=== PATIENT | male | born 1980 | race American Indian/Alaskan Native ===

== ENCOUNTER 2016-10-14 09:35 | Emergency (ER) | payer MEDICARE ==
[2016-10-14 10:01] VITALS: BP 136/98
--- NOTE | 2016-10-14 10:28 | Emergency Department Report ---
HPI - General Chief Complaint: Dental/Oral Time Seen by Provider: 10/14/16 10:16 - HPI HPI: The patient is a 36-year-old male who presents to ED complaining of 7/10 pain in the right side of his mouth x 30 days . Patient states that the pain started 5 days ago and has increased in severity over the last 2-3 days. The pain is exacerbated by eating and opening of the mouth. Patient states the pain is alleviated initially with pain medication but comes back. She states she has a dentist appointment on October 23 Patient states that it radiates towards ear. Patient describes a as a throbbing, pressure-like sensation. Patient states otherwise well and has no other complaints. Patient has had no fevers and no chills. No chest pain, no shortness of breath. No abdominal pain. No shortness of breath or recent trauma to the face. ED Past Medical Hx - Past Medical History Previous Medical History?: Yes Hx Psychiatric Treatment: Yes (anxiety) Additional medical history: toothache, Back pain and knee pain - Surgical History Past Surgical History?: Yes Additional Surgical History: Back surgery - Social History Smoking Status: Current Every Day Smoker Substance Use Type: Non Opiate Pain, Prescribed - Medications Home Medications: Home Medications Medication Instructions Recorded Confirmed Last Taken Type Acetaminophen-Codeine #4 TAB PRN 10/14/16 10/13/16 History Amoxicillin 500 mg PO BID #20 capsule 10/14/16 Unknown Rx Gabapentin [Neurontin] 600 mg PO Q8H 10/14/16 10/14/16 10/14/16 History busPIRone [Buspar] 10 mg PO BID 10/14/16 10/14/16 10/13/16 History traMADol [Ultram 50 MG tab] 50 mg PO Q6HR PRN #16 tablet 10/14/16 Unknown Rx ED Review of Systems ROS: Stated complaint: ABCESS/TOOTHACHE Other details as noted in HPI Constitutional: denies: chills, fever Eyes: denies: eye pain, eye discharge, vision change ENT: denies: ear pain, throat pain Respiratory: denies: cough, shortness of breath, wheezing Cardiovascular: denies: chest pain, palpitations Endocrine: no symptoms reported Gastrointestinal: denies: abdominal pain, nausea, vomiting, diarrhea Genitourinary: denies: urgency, dysuria, frequency, hematuria Musculoskeletal: denies: back pain, joint swelling, arthralgia Skin: denies: rash, lesions Neurological: denies: headache, weakness, paresthesias Psychiatric: denies: anxiety, depression Hematological/Lymphatic: denies: easy bleeding, easy bruising Physical Exam - Physical Exam Vital Signs: Vital Signs 10/14/16 09:58 Temperature 97.7 F Pulse Rate 69 Respiratory 20 Rate Blood Pressure 136/98 O2 Sat by Pulse 97 Oximetry Physical Exam: GENERAL: Alert and oriented x3, no apparent distress, Normal Gait, atraumatic. HEAD: Head is normocephalic and a-traumatic. EYES: Extra ocular muscles are intact. Pupils are equal, round, and reactive to light and accommodation. EARS: symetrical, atraumatic. gross auditory nml bilaterally. NOSE: Nose symetrical, Nontender,Nares appeared normal. MOUTH:Mouth is well hydrated and without lesions. Tonsils nonerythematous or swollen, Uvula midline, Tongue not elevated. Mucous membranes are moist. Posterior pharynx clear, no exudate or lesions. Patent airways. Dental caries on Teeth #27-30. Nontender to palpation, nonedematous, no gingival enlargement. No TMJ tenderness NECK: Supple. Non edematous, No carotid bruits. No lymphadenopathy or thyromegaly. No C-spine tenderness LUNGS: Symetrical with respiration, No wheezing, no rales or crackles, CTAB. HEART: S1, S2 present, regular rate and rhythm without murmur, no rubs, no gallops. SKIN: Warm and dry, No lesions, No ulceration or induration present. ED Course Vital Signs 10/14/16 09:58 Temperature 97.7 F Pulse Rate 69 Respiratory 20 Rate Blood Pressure 136/98 O2 Sat by Pulse 97 Oximetry ED Medical Decision Making - Medical Decision Making 36-year-old male presented with dental pain due to dental caries ED course: Discussed the patient and keep appointment for dentist. Discussed some medication of antibiotics and pain medication until dentist appointment. Vital signs are stable patient is in no acute or restricted distress. Patient understands instructions given and to follow-up Critical care attestation.: If time is entered above; I have spent that time in minutes in the direct care of this critically ill patient, excluding procedure time. ED Disposition Clinical Impression: Dental caries, Pain, dental Disposition: DISCHARGED TO HOME OR SELFCARE Is pt being admited?: No Does the pt Need Aspirin: No Condition: Stable Instructions: Dental Caries (ED), Toothache (ED) Prescriptions: Amoxicillin 500 mg PO BID #20 capsule traMADol [Ultram 50 MG tab] 50 mg PO Q6HR PRN #16 tablet PRN Reason: Pain Referrals: PRIMARY CARE, [Primary Care Provider] - 3-5 Days [facility] [Outside] - 3-5 Days [facility] [Outside] - 3-5 Days Forms: Work/School Release Form(ED) Time of Disposition: 10:32
== END 2016-10-14 11:10 | disposition home or self-care (01) ==
LOC: ED 09:35
DX: K02.9 Dental caries, unspecified (principal); F41.9 Anxiety disorder, unspecified; F17.200 Nicotine dependence, unspecified, uncomplicated
CPT/HCPCS: 99282

== ENCOUNTER 2018-04-06 01:39 | Emergency (ER) | payer MEDICARE ==
[2018-04-06 02:52] LABS: Basophils # (Auto) 0.1 K/mm3 (0.0-0.1); Basophils % (Auto) 1.1 % (0.0-1.8); Eosinophils # (Auto) 0.1 K/mm3 (0.0-0.4); Eosinophils % (Auto) 1.8 % (0.0-4.3); Hematocrit 42.1 % (35.5-45.6); Hemoglobin 14.4 gm/dl (11.8-15.2); Lymphocytes # (Auto) 1.9 K/mm3 (1.2-5.4); Lymphocytes % (Auto) 23.1 % (13.4-35.0); Mean Corpuscular HGB Conc 34 % (32-34); Mean Corpuscular Hemoglobin 30 pg (28-32); Mean Corpuscular Volume 88 fl (84-94); Monocytes # (Auto) 0.7 K/mm3 (0.0-0.8); Monocytes % (Auto) 8.6 % (0.0-7.3); Platelet Count 296 K/mm3 (140-440); Red Blood Count 4.77 M/mm3 (3.65-5.03); Red Cell Distribution Width 13.5 % (13.2-15.2)
[2018-04-06 03:00] LABS: Bilirubin,Urine NEG (Negative); Blood,Urine NEG (Negative); Color,Urine Yellow (Yellow); Mucus,Urine FEW /HPF; Protein,Urine <15 mg/dL mg/dL (Negative)
[2018-04-06 03:09] LABS: Benzodiazepines Screen,Urine PRESUMPTIVE NEGATIVE; Cannabinoid Screen,Urine PRESUMPTIVE NEGATIVE; Cocaine Screen,Urine PRESUMPTIVE NEGATIVE; Methadone Screen,Urine PRESUMPTIVE NEGATIVE; Opiate Screen,Urine PRESUMPTIVE NEGATIVE
[2018-04-06 03:33] LABS: BUN/Creatinine Ratio 17; Blood Urea Nitrogen 12 mg/dL (9-20); Calcium 9.6 mg/dL (8.4-10.2); Hemolysis Index 9
[2018-04-06 03:34] LABS: Amphetamine Screen,Urine PRESUMPTIVE POSITIVE
[2018-04-06] MEDS ORDERED: ATIVAN IM STA (06:32)
--- NOTE | 2018-04-06 06:32 | Emergency Department Report ---
ED General Adult HPI - General Chief complaint: Psych Stated complaint: MEDICAL CLEARANCE Time Seen by Provider: 04/06/18 06:25 Source: patient, RN notes reviewed Mode of arrival: Ambulatory Limitations: No Limitations - History of Present Illness Initial comments: This is a 38-year-old gentleman who is not known to this provider previously, who presents to the ER for medical clearance. Patient is at a local voluntary psychiatric facility, and had a relapse on meth. He reports that his intent was recreational only, and he denies homicidality and suicidality. His last ingestion was yesterday evening. He denies coingestions. He is mild headache which is bitemporal, present for the past day and a half, sharp in nature, is not sudden or thunderclap in nature, and has essentially resolved. There is no trauma. He denies neck pain, chest pain, abdominal pain, shortness of breath, homicidality, suicidality and hallucinations. He denies abdominal pain and urinary symptoms. -: Sudden Quality: aching, sharp Consistency: now resolved Improves with: none Worsens with: none Associated Symptoms: denies other symptoms, headaches - Related Data Home Medications Medication Instructions Recorded Confirmed Last Taken Acetaminophen-Codeine #4 TAB PRN 10/14/16 10/13/16 Gabapentin [Neurontin] 600 mg PO Q8H 10/14/16 10/14/16 10/14/16 busPIRone [Buspar] 10 mg PO BID 10/14/16 10/14/16 10/13/16 Previous Rx's Medication Instructions Recorded Last Taken Type Amoxicillin 500 mg PO BID #20 capsule 10/14/16 Unknown Rx traMADol [Ultram 50 MG tab] 50 mg PO Q6HR PRN #16 tablet 10/14/16 Unknown Rx Allergies Allergy/AdvReac Type Severity Reaction Status Date / Time No Known Allergies Allergy Unverified 10/14/16 09:55 ED Review of Systems ROS: Stated complaint: MEDICAL CLEARANCE Other details as noted in HPI Constitutional: denies: fever Eyes: denies: eye discharge ENT: denies: epistaxis Respiratory: denies: cough Cardiovascular: denies: chest pain Gastrointestinal: denies: abdominal pain Genitourinary: denies: dysuria Musculoskeletal: denies: arthralgia, myalgia Skin: denies: lesions Neurological: headache Psychiatric: denies: homicidal thoughts, suicidal thoughts ED Past Medical Hx - Past Medical History Previous Medical History?: Yes Hx Psychiatric Treatment: Yes (anxiety) Additional medical history: toothache, Back pain and knee pain - Surgical History Past Surgical History?: Yes Additional Surgical History: Back surgery - Social History Smoking Status: Current Every Day Smoker Substance Use Type: Methamphetamines - Medications Home Medications: Home Medications Medication Instructions Recorded Confirmed Last Taken Type Acetaminophen-Codeine #4 TAB PRN 10/14/16 10/13/16 History Amoxicillin 500 mg PO BID #20 capsule 10/14/16 Unknown Rx Gabapentin [Neurontin] 600 mg PO Q8H 10/14/16 10/14/16 10/14/16 History busPIRone [Buspar] 10 mg PO BID 10/14/16 10/14/16 10/13/16 History traMADol [Ultram 50 MG tab] 50 mg PO Q6HR PRN #16 tablet 10/14/16 Unknown Rx ED Physical Exam - General Limitations: No Limitations General appearance: alert, anxious - Head Head exam: Present: atraumatic, normocephalic - Eye Eye exam: Present: PERRL, EOMI, other (pupils are dilated bilaterally, but constrict to light) - ENT ENT exam: Present: normal exam, normal orophraynx, mucous membranes moist, normal external ear exam - Neck Neck exam: Present: normal inspection, full ROM. Absent: tenderness, meningismus - Respiratory Respiratory exam: Present: normal lung sounds bilaterally. Absent: respiratory distress - Cardiovascular Cardiovascular Exam: Present: normal rhythm, tachycardia, normal heart sounds. Absent: systolic murmur, diastolic murmur, rubs, gallop - GI/Abdominal GI/Abdominal exam: Present: soft, normal bowel sounds. Absent: distended, tenderness, guarding, rebound, rigid, pulsatile mass - Rectal Rectal exam: Present: deferred - Extremities Exam Extremities exam: Present: normal inspection, full ROM, other (2+ pulses noted in the bilateral upper, lower extremities. Compartments soft. No long bony tenderness. The pelvis is stable.). Absent: tenderness, pedal edema, joint swelling, calf tenderness - Back Exam Back exam: Present: normal inspection, full ROM. Absent: tenderness, CVA tenderness (R), paraspinal tenderness, vertebral tenderness - Neurological Exam Neurological exam: Present: alert, oriented X3, CN II-XII intact, normal gait, other (Extraocular movements intact. Tongue midline. No facial droop. Facial sensation intact to light touch in the V1, V2, V3 distribution bilaterally. 5 and 5 strength in 4 extremities.. Sensation is intact to light touch in 4 extremities.). Absent: motor sensory deficit - Psychiatric Psychiatric exam: Present: anxious. Absent: homicidal ideation, suicidal ideation - Skin Skin exam: Present: warm, dry, intact, normal color. Absent: rash ED Course Vital Signs 04/06/18 01:44 Temperature 98.3 F Pulse Rate 112 H Respiratory 18 Rate Blood Pressure 148/105 O2 Sat by Pulse 98 Oximetry ED Medical Decision Making - Lab Data Result diagrams: 04/06/18 02:26 04/06/18 02:26 Vital Signs 04/06/18 01:44 Temperature 98.3 F Pulse Rate 112 H Respiratory 18 Rate Blood Pressure 148/105 O2 Sat by Pulse 98 Oximetry Lab Results 04/06/18 04/06/18 04/06/18 Range/Units 02:24 02:24 02:26 WBC (4.5-11.0) K/mm3 RBC (3.65-5.03) M/mm3 Hgb (11.8-15.2) gm/dl Hct (35.5-45.6) % MCV (84-94) fl MCH (28-32) pg MCHC (32-34) % RDW (13.2-15.2) % Plt Count (140-440) K/mm3 Lymph % (Auto) (13.4-35.0) % [place] % (Auto) (0.0-7.3) % Eos % (Auto) (0.0-4.3) % Baso % (Auto) (0.0-1.8) % Lymph # (1.2-5.4) K/mm3 [place] # (0.0-0.8) K/mm3 Eos # (0.0-0.4) K/mm3 Baso # (0.0-0.1) K/mm3 Seg Neutrophils % (40.0-70.0) % Seg Neutrophils # (1.8-7.7) K/mm3 Sodium (137-145) mmol/L Potassium (3.6-5.0) mmol/L Chloride (98-107) mmol/L Carbon Dioxide (22-30) mmol/L Anion Gap mmol/L BUN (9-20) mg/dL Creatinine (0.8-1.5) mg/dL Estimated GFR ml/min BUN/Creatinine Ratio % Glucose (75-100) mg/dL Calcium (8.4-10.2) mg/dL Total Creatine Kinase (55-170) units/L Urine Color Yellow (Yellow) Urine Turbidity Clear (Clear) Urine pH 5.0 (5.0-7.0) Ur Specific [place] 1.024 (1.003-1.030) Urine Protein <15 mg/dl (Negative) mg/dL Urine Glucose (UA) Neg (Negative) mg/dL Urine Ketones Tr (Negative) mg/dL Urine Blood Neg (Negative) Urine Nitrite Neg (Negative) Urine Bilirubin Neg (Negative) Urine Urobilinogen 2.0 (<2.0) mg/dL Ur Leukocyte Esterase Neg (Negative) Urine WBC (Auto) 1.0 (0.0-6.0) /HPF Urine RBC (Auto) 4.0 (0.0-6.0) /HPF Urine Mucus Few /HPF Salicylates < 0.3 L (2.8-20.0) mg/dL Urine Opiates Screen Presumptive negative Urine Methadone Screen Presumptive negative Acetaminophen (10.0-30.0) ug/mL Ur Barbiturates Screen Presumptive negative Ur Phencyclidine Scrn Presumptive negative Ur Amphetamines Screen Presumptive positive U Benzodiazepines Scrn Presumptive negative Urine Cocaine Screen Presumptive negative U Marijuana (THC) Screen Presumptive negative Drugs of Abuse Note Disclamer Plasma/Serum Alcohol (0-0.07) % 04/06/18 04/06/18 04/06/18 Range/Units 02:26 02:26 02:26 WBC (4.5-11.0) K/mm3 RBC (3.65-5.03) M/mm3 Hgb (11.8-15.2) gm/dl Hct (35.5-45.6) % MCV (84-94) fl MCH (28-32) pg MCHC (32-34) % RDW (13.2-15.2) % Plt Count (140-440) K/mm3 Lymph % (Auto) (13.4-35.0) % [place] % (Auto) (0.0-7.3) % Eos % (Auto) (0.0-4.3) % Baso % (Auto) (0.0-1.8) % Lymph # (1.2-5.4) K/mm3 [place] # (0.0-0.8) K/mm3 Eos # (0.0-0.4) K/mm3 Baso # (0.0-0.1) K/mm3 Seg Neutrophils % (40.0-70.0) % Seg Neutrophils # (1.8-7.7) K/mm3 Sodium 137 (137-145) mmol/L Potassium 4.0 (3.6-5.0) mmol/L Chloride 100.1 (98-107) mmol/L Carbon Dioxide 25 (22-30) mmol/L Anion Gap 16 mmol/L BUN 12 (9-20) mg/dL Creatinine 0.7 L (0.8-1.5) mg/dL Estimated GFR > 60 ml/min BUN/Creatinine Ratio 17 % Glucose 120 H (75-100) mg/dL Calcium 9.6 (8.4-10.2) mg/dL Total Creatine Kinase (55-170) units/L Urine Color (Yellow) Urine Turbidity (Clear) Urine pH (5.0-7.0) Ur Specific [place] (1.003-1.030) Urine Protein (Negative) mg/dL Urine Glucose (UA) (Negative) mg/dL Urine Ketones (Negative) mg/dL Urine Blood (Negative) Urine Nitrite (Negative) Urine Bilirubin (Negative) Urine Urobilinogen (<2.0) mg/dL Ur Leukocyte Esterase (Negative) Urine WBC (Auto) (0.0-6.0) /HPF Urine RBC (Auto) (0.0-6.0) /HPF Urine Mucus /HPF Salicylates (2.8-20.0) mg/dL Urine Opiates Screen Urine Methadone Screen Acetaminophen < 5.0 L (10.0-30.0) ug/mL Ur Barbiturates Screen Ur Phencyclidine Scrn Ur Amphetamines Screen U Benzodiazepines Scrn Urine Cocaine Screen U Marijuana (THC) Screen Drugs of Abuse Note Plasma/Serum Alcohol < 0.01 (0-0.07) % 04/06/18 04/06/18 Range/Units 02:26 02:26 WBC 8.1 (4.5-11.0) K/mm3 RBC 4.77 (3.65-5.03) M/mm3 Hgb 14.4 (11.8-15.2) gm/dl Hct 42.1 (35.5-45.6) % MCV 88 (84-94) fl MCH 30 (28-32) pg MCHC 34 (32-34) % RDW 13.5 (13.2-15.2) % Plt Count 296 (140-440) K/mm3 Lymph % (Auto) 23.1 (13.4-35.0) % [place] % (Auto) 8.6 H (0.0-7.3) % Eos % (Auto) 1.8 (0.0-4.3) % Baso % (Auto) 1.1 (0.0-1.8) % Lymph # 1.9 (1.2-5.4) K/mm3 [place] # 0.7 (0.0-0.8) K/mm3 Eos # 0.1 (0.0-0.4) K/mm3 Baso # 0.1 (0.0-0.1) K/mm3 Seg Neutrophils % 65.4 (40.0-70.0) % Seg Neutrophils # 5.3 (1.8-7.7) K/mm3 Sodium (137-145) mmol/L Potassium (3.6-5.0) mmol/L Chloride (98-107) mmol/L Carbon Dioxide (22-30) mmol/L Anion Gap mmol/L BUN (9-20) mg/dL Creatinine (0.8-1.5) mg/dL Estimated GFR ml/min BUN/Creatinine Ratio % Glucose (75-100) mg/dL Calcium (8.4-10.2) mg/dL Total Creatine Kinase 256 H (55-170) units/L Urine Color (Yellow) Urine Turbidity (Clear) Urine pH (5.0-7.0) Ur Specific [place] (1.003-1.030) Urine Protein (Negative) mg/dL Urine Glucose (UA) (Negative) mg/dL Urine Ketones (Negative) mg/dL Urine Blood (Negative) Urine Nitrite (Negative) Urine Bilirubin (Negative) Urine Urobilinogen (<2.0) mg/dL Ur Leukocyte Esterase (Negative) Urine WBC (Auto) (0.0-6.0) /HPF Urine RBC (Auto) (0.0-6.0) /HPF Urine Mucus /HPF Salicylates (2.8-20.0) mg/dL Urine Opiates Screen Urine Methadone Screen Acetaminophen (10.0-30.0) ug/mL Ur Barbiturates Screen Ur Phencyclidine Scrn Ur Amphetamines Screen U Benzodiazepines Scrn Urine Cocaine Screen U Marijuana (THC) Screen Drugs of Abuse Note Plasma/Serum Alcohol (0-0.07) % - Radiology Data Radiology results: report reviewed, image reviewed Noncontrast CT scan of the brain is negative for acute disease - Medical Decision Making Differential diagnosis, including but not limited to: Methamphetamine use, migraine headache, tension headache, cluster headache Assessment and plan: 38-year-old male sent to the ER for medical clearance after methamphetamine use. He is afebrile with tachycardia, but otherwise unremarkable vital signs. GCS of 15, no cervical spine tenderness, clinically sober at this time. He does not meet 1013 criteria at this time. Serum toxicology studies are unremarkable. Creatinine kinase acceptable. Noncontrast CT scan of the brain is negative for acute intracranial findings. [place] improved after Ativan. There does not appear to be an immediate medical contraindication to returning to his outpatient facility at this time. Patient is advised to discontinue methamphetamine consumption. He can take over-the- counter medications as needed for his headaches. Critical care attestation.: If time is entered above; I have spent that time in minutes in the direct care of this critically ill patient, excluding procedure time. ED Disposition Clinical Impression: Methamphetamine use Disposition: DC-01 TO HOME OR SELFCARE Is pt being admited?: No Does the pt Need Aspirin: No Condition: Stable Instructions: Methamphetamine Abuse (ED) Additional Instructions: Patient may take [id number] acetaminophen, alternating with ibuprofen, as needed for headaches. Discontinued consumption of methamphetamine, as it is dangerous, and addictive. Long-term complications of methamphetamine consumption may include , paralysis, disability. Follow up with the primary care doctor within the next month. Please return to the ER right away with severe pain, worsening pain, migration of pain, projectile vomiting, change in mental status, confusion, inability to tolerate liquid feeds. There does not appear to be an immediate medical contraindication for patient to return to his outpatient facility at this time. Referrals: AUREA HOPKINS MD [Staff Physician] - 3-5 Days [facility] [Provider Group] - 3-5 Days
--- NOTE | 2018-04-06 08:07 | Cat Scan Report ---
FINAL REPORT EXAM: CT HEAD/BRAIN WO CON HISTORY: headache after meth use TECHNIQUE: CT imaging acquired through the head without intravenous contrast. Transaxial reformations are provided. PRIORS: None. FINDINGS: The ventricles, cisterns and sulci are normal. No intraparenchymal or extra-axial mass, hemorrhage, or mass effect. Posey and white-matter differentiation is normal. Normal spherical shape of the globes. Mild right frontal soft tissue swelling. Mastoid air cells are clear. There is mild mucosal thickening/mucous retention cysts in the maxillary sinuses, partially imaged. No skull or facial fracture visualized. IMPRESSION: No acute intracranial abnormality. Mild right frontal scalp soft tissue swelling. No skull or facial fracture.
[2018-04-06] MEDS ORDERED: ATIVAN ONE (10:10)
[2018-04-06 10:39] VITALS: BP 149/63
== END 2018-04-06 11:05 | disposition home or self-care (01) ==
LOC: ED 01:39
DX: F15.99 Other stimulant use, unspecified with unspecified stimulant-induced disorder (principal); F41.9 Anxiety disorder, unspecified; F17.200 Nicotine dependence, unspecified, uncomplicated; Z79.899 Other long term (current) drug therapy
CPT/HCPCS: 36415; 70450; 80048; 80307; 81001; 82550; 85025; 96372; 99284; G0480; J2060; 80320

== ENCOUNTER 2018-04-07 17:35 | Emergency (ER) | payer MEDICARE ==
[2018-04-07 19:47] LABS: Basophils # (Auto) 0.1 K/mm3 (0.0-0.1); Basophils % (Auto) 1.4 % (0.0-1.8); Eosinophils # (Auto) 0.3 K/mm3 (0.0-0.4); Eosinophils % (Auto) 3.2 % (0.0-4.3); Hematocrit 42.9 % (35.5-45.6); Hemoglobin 14.8 gm/dl (11.8-15.2); Lymphocytes # (Auto) 2.1 K/mm3 (1.2-5.4); Lymphocytes % (Auto) 23.2 % (13.4-35.0); Mean Corpuscular HGB Conc 35 % (32-34); Mean Corpuscular Hemoglobin 30 pg (28-32); Mean Corpuscular Volume 88 fl (84-94); Monocytes # (Auto) 0.9 K/mm3 (0.0-0.8); Monocytes % (Auto) 10.4 % (0.0-7.3); Platelet Count 343 K/mm3 (140-440); Red Cell Distribution Width 13.1 % (13.2-15.2)
[2018-04-07 20:03] LABS: BUN/Creatinine Ratio 26; Blood Urea Nitrogen 21 mg/dL (9-20); Calcium 9.7 mg/dL (8.4-10.2); Hemolysis Index 5
--- NOTE | 2018-04-07 22:42 | Emergency Department Report ---
ED Psych HPI - General Chief Complaint: Psych Stated Complaint: EVAL Time Seen by Provider: 04/07/18 22:40 Source: patient Mode of arrival: Ambulatory - History of Present Illness Initial Comments: 38-year-old male chief complaint of requesting detox from meth use. Patient reports that he has had suicidal ideation recently was no plan. Patient denies homicidal ideation. Patient denies any other complaints. Patient denies chest pressures of breath cough vomiting. MD Complaint: suicidal ideation, feels depressed Associated Psychiatric Symptoms: depression, suicidal ideation Improves With: none Worsens With: none Context: recent drug abuse Associated Symptoms: denies other symptoms. denies: confusion, headache, nausea , vomiting Treatments Prior to Arrival: none, placed on mental he If Self Harm: admits thoughts of - Related Data Home Medications Medication Instructions Recorded Confirmed Last Taken Acetaminophen-Codeine #4 TAB PRN 10/14/16 10/13/16 Gabapentin [Neurontin] 600 mg PO Q8H 10/14/16 10/14/16 10/14/16 busPIRone [Buspar] 10 mg PO BID 10/14/16 10/14/16 10/13/16 Previous Rx's Medication Instructions Recorded Last Taken Type Amoxicillin 500 mg PO BID #20 capsule 10/14/16 Unknown Rx traMADol [Ultram 50 MG tab] 50 mg PO Q6HR PRN #16 tablet 10/14/16 Unknown Rx Allergies Allergy/AdvReac Type Severity Reaction Status Date / Time No Known Allergies Allergy Unverified 10/14/16 09:55 ED Review of Systems ROS: Stated complaint: EVAL Other details as noted in HPI Constitutional: denies: chills, fever Eyes: denies: eye pain, eye discharge, vision change ENT: denies: ear pain, throat pain Respiratory: denies: cough, shortness of breath, wheezing Cardiovascular: denies: chest pain, palpitations Endocrine: no symptoms reported Gastrointestinal: denies: abdominal pain, nausea, diarrhea Genitourinary: denies: urgency, dysuria Musculoskeletal: denies: back pain, joint swelling, arthralgia Skin: denies: rash, lesions Neurological: denies: headache, weakness, paresthesias Psychiatric: depression, suicidal thoughts. denies: anxiety, homicidal thoughts Hematological/Lymphatic: denies: easy bleeding, easy bruising ED Past Medical Hx - Past Medical History Previous Medical History?: Yes Hx Hypertension: Yes Hx Psychiatric Treatment: Yes (anxiety) Additional medical history: toothache, Back pain and knee pain - Surgical History Past Surgical History?: Yes Additional Surgical History: Back surgery - Social History Smoking Status: Current Every Day Smoker Substance Use Type: Methamphetamines - Medications Home Medications: Home Medications Medication Instructions Recorded Confirmed Last Taken Type Acetaminophen-Codeine #4 TAB PRN 10/14/16 10/13/16 History Amoxicillin 500 mg PO BID #20 capsule 10/14/16 Unknown Rx Gabapentin [Neurontin] 600 mg PO Q8H 10/14/16 10/14/16 10/14/16 History busPIRone [Buspar] 10 mg PO BID 10/14/16 10/14/16 10/13/16 History traMADol [Ultram 50 MG tab] 50 mg PO Q6HR PRN #16 tablet 10/14/16 Unknown Rx ED Physical Exam - General Limitations: No Limitations General appearance: alert, in no apparent distress - Head Head exam: Present: atraumatic, normocephalic - Eye Eye exam: Present: normal appearance - ENT ENT exam: Present: mucous membranes moist - Neck Neck exam: Present: normal inspection - Respiratory Respiratory exam: Present: normal lung sounds bilaterally. Absent: respiratory distress - Cardiovascular Cardiovascular Exam: Present: regular rate, normal rhythm. Absent: systolic murmur, diastolic murmur, rubs, gallop - GI/Abdominal GI/Abdominal exam: Present: soft, normal bowel sounds - Rectal Rectal exam: Present: deferred - Extremities Exam Extremities exam: Present: normal inspection - Back Exam Back exam: Present: normal inspection - Neurological Exam Neurological exam: Present: alert, oriented X3 - Psychiatric Psychiatric exam: Present: depressed, anxious, suicidal ideation - Skin Skin exam: Present: warm, dry, intact, normal color. Absent: rash ED Course Vital Signs 04/07/18 04/07/18 19:26 23:00 Temperature 98.3 F 99 F Pulse Rate 103 H 108 H Respiratory 16 13 Rate Blood Pressure 148/103 Blood Pressure 114/78 [Right] O2 Sat by Pulse 98 99 Oximetry ED Medical Decision Making - Lab Data Result diagrams: 04/07/18 19:33 04/07/18 23:32 - Medical Decision Making 38-year-old male with history of recent was a drug use presents with suicidal ideation without plan. Patient is medically cleared for psychiatric placement. Critical care attestation.: If time is entered above; I have spent that time in minutes in the direct care of this critically ill patient, excluding procedure time. ED Disposition Clinical Impression: Methamphetamine abuse, Suicidal ideation Disposition: DC/TX-70 ANOTHER TYPE HLTHCARE Is pt being admited?: No Does the pt Need Aspirin: No Condition: Good Referrals: PRIMARY CARE, [Primary Care Provider] - 3-5 Days
[2018-04-08 00:10] LABS: BUN/Creatinine Ratio 27; Blood Urea Nitrogen 19 mg/dL (9-20); Calcium 9.5 mg/dL (8.4-10.2); Hemolysis Index 5
[2018-04-08 01:06] LABS: Bilirubin,Urine NEG (Negative); Blood,Urine NEG (Negative); Color,Urine Yellow (Yellow); Mucus,Urine FEW /HPF; Protein,Urine <15 mg/dL mg/dL (Negative); Urobilinogen,Urine < 2.0 mg/dL (<2.0)
[2018-04-08 01:07] LABS: WBC,Urine < 1.0 /HPF (0.0-6.0)
[2018-04-08 01:15] LABS: Benzodiazepines Screen,Urine PRESUMPTIVE NEGATIVE; Cannabinoid Screen,Urine PRESUMPTIVE NEGATIVE; Cocaine Screen,Urine PRESUMPTIVE NEGATIVE; Methadone Screen,Urine PRESUMPTIVE NEGATIVE; Opiate Screen,Urine PRESUMPTIVE NEGATIVE
[2018-04-08 01:26] LABS: Amphetamine Screen,Urine PRESUMPTIVE POSITIVE
[2018-04-08] MEDS ORDERED: FLOMAX PO ONE (02:12)
--- NOTE | 2018-04-08 04:31 | Emergency Department Report ---
Blank Doc - Documentation Documentation: I was asked by nurse to evaluate patient. Patient has urinary retention which he attributes to methamphetamine binge. He states that he has urinary retention when he uses methamphetamine. Nurse was able to detect 800 ml of urine on bladder scan. Initially received Flomax prior to the bladder scan. I ordered for Qu[place] catheter to be placed temporarily. The quiroga catheter will need to be need to be discontinued before he is released from the emergency department.
[2018-04-08] MEDS ORDERED: ATARAX PO ONE (04:37)
[2018-04-08 11:25] VITALS: BP 130/93
== END 2018-04-08 11:55 | disposition other institution (70) ==
LOC: ED 17:35
DX: F32.9 Major depressive disorder, single episode, unspecified (principal); F15.10 Other stimulant abuse, uncomplicated; R33.0 Drug induced retention of urine; T43.625A Adverse effect of amphetamines, initial encounter; I10 Essential (primary) hypertension; F41.9 Anxiety disorder, unspecified; F17.200 Nicotine dependence, unspecified, uncomplicated; Z79.899 Other long term (current) drug therapy; Y92.89 Other specified places as the place of occurrence of the external cause
CPT/HCPCS: 36415; 51702; 80048; 80307; 81001; 85025; 93005; 93010; 99285; G0480; 80320

== ENCOUNTER 2018-04-08 13:28 | Emergency (ER) | payer MEDICARE ==
--- NOTE | 2018-04-08 14:30 | Emergency Department Report ---
HPI - General Chief Complaint: Abdominal Pain Time Seen by Provider: 04/08/18 14:04 - HPI HPI: Room 17 The patient is a 38-year-old male presented with a chief complaint of Miller catheter. 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 The patient has a history of urinary retention whenever he binges on methamphetamines subsequently had a Miller catheter placed in the ED. Full catheter was not removed for the patient was transferred to the psych facility so the psych facility sent the patient back to have a Miller catheter removed Location: Genitourinary system Duration: [See above] Quality: [See above] Severity: [See above] Modifying factors: [see above] Context: [see above] Mode of transportation: [not driving] ED Past Medical Hx - Past Medical History Hx Hypertension: Yes Hx Psychiatric Treatment: Yes (anxiety) Additional medical history: toothache, Back pain and knee pain - Surgical History Additional Surgical History: Back surgery - Family History Family history: no significant - Social History Smoking Status: Never Smoker Substance Use Type: Methamphetamines - Medications Home Medications: Home Medications Medication Instructions Recorded Confirmed Last Taken Type Acetaminophen-Codeine #4 TAB PRN 10/14/16 10/13/16 History Amoxicillin 500 mg PO BID #20 capsule 10/14/16 Unknown Rx Gabapentin [Neurontin] 600 mg PO Q8H 10/14/16 10/14/16 10/14/16 History busPIRone [Buspar] 10 mg PO BID 10/14/16 10/14/16 10/13/16 History traMADol [Ultram 50 MG tab] 50 mg PO Q6HR PRN #16 tablet 10/14/16 Unknown Rx ED Review of Systems ROS: Stated complaint: CATH PROMBLEMS Other details as noted in HPI Eyes: denies: eye pain ENT: denies: throat pain Respiratory: no symptoms reported Endocrine: no symptoms reported Genitourinary: other (Miller discomfort) Physical Exam - Physical Exam Vital Signs: Vital Signs 04/08/18 13:54 Temperature 98.9 F Pulse Rate 102 H Respiratory 16 Rate Blood Pressure 123/63 O2 Sat by Pulse 97 Oximetry Physical Exam: GENERAL: The patient is well-developed well-nourished male lying on stretcher not appearing to be in acute distress. [] HEENT: Normocephalic. Atraumatic. Extraocular motions are intact. Patient has moist mucous membranes. NECK: Supple. Trachea midline CHEST/LUNGS: Clear to auscultation. There is no respiratory distress noted. HEART/CARDIOVASCULAR: Regular. There is no tachycardia. There is no gallop rub or murmur. ABDOMEN: Abdomen is soft, nontender. Patient has normal bowel sounds. There is no abdominal distention. SKIN: There is no rash. There is no edema. There is no diaphoresis. NEURO: The patient is awake, alert, and oriented. The patient is cooperative. The patient has normal speech MUSCULOSKELETAL: There is no evidence of acute injury. ED Course Vital Signs 04/08/18 13:54 Temperature 98.9 F Pulse Rate 102 H Respiratory 16 Rate Blood Pressure 123/63 O2 Sat by Pulse 97 Oximetry ED Medical Decision Making - Differential Diagnosis Miller cath Critical care attestation.: If time is entered above; I have spent that time in minutes in the direct care of this critically ill patient, excluding procedure time. ED Disposition Clinical Impression: Methamphetamine use, Suicidal ideation, Encounter for Miller catheter removal Disposition: [id number]/[id number] PSY HOSP/PSY UNIT Is pt being admited?: No Does the pt Need Aspirin: No Condition: Stable Additional Instructions: Return to the emergency department immediately should you develop worsening symptoms, fever, inability to tolerate food or liquid or any other concerns. Referrals: PRIMARY CAREMD [Primary Care Provider] - 3-5 Days Time of Disposition: 14:33
[2018-04-08 17:01] VITALS: BP 120/76
== END 2018-04-08 16:57 ==
LOC: ED 13:28
DX: F41.9 Anxiety disorder, unspecified (principal); F15.90 Other stimulant use, unspecified, uncomplicated; I10 Essential (primary) hypertension
CPT/HCPCS: 99284